=== PATIENT | female | born 1930 | race Two or more races ===

== ENCOUNTER 2018-04-13 14:15 | Emergency (ER) | payer OTHER ==
[~2018-04-13] VITALS: Ht 149.9 cm; Wt 52.6 kg
[~2018-04-13 14:15] MED LIST: LOSARTAN POTASS25 MG; SYNTHROID50 MCG; ZANTAC 7575 MG
[2018-04-13] MEDS ORDERED: DICY20TA PO (14:37)
[2018-04-13] MEDS ORDERED: METOPROLOL SUCC50 MG PO (14:37)
[2018-04-14] MEDS ORDERED: CEFUROXIME250 MG PO ×2 (06:40→06:41)
[2018-04-14] MEDS ORDERED: LEVSIN/SL0.125 MG SL ×2 (06:41)
== END 2018-04-14 06:47 | disposition home or self-care (01) ==
LOC: ER 14:15
DX: N30.80 Other cystitis without hematuria (principal)